=== PATIENT | male | born 2000 | race African-American/Black ===

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

== ENCOUNTER 2020-11-04 18:29 | Inpatient (IN) | payer MEDICAID, OTHER ==
[2020-11-04] MEDS: NALOXONE 0.4 MG/ML 1 ML VIAL IVP STA ×2 (18:32→18:38)
[2020-11-04] MEDS ORDERED: SODIUM CHLORIDE 0.9% 500 ML 500 ML IV STA (18:42)
[2020-11-04 18:43] LABS: Glucose,Whole Blood 160 mg/dL (75-99)
[2020-11-04 18:58] LABS: Basophils % (A) 0 %; Eosinophils % (A) 0 %; HGB 14.5 gm/dL (13.0-17.5); Lymphocytes # (A) 1.5 k/uL (1.0-4.8); Lymphocytes % (A) 21 %; MCH 31.7 pg (25.0-35.0); MCHC 33.8 g/dL (31.0-37.0); MCV 93.8 fL (80.0-100.0); Mean Platelet Volume 6.5; Monocytes # (A) 0.3 k/uL (0-1.0); Monocytes % (A) 4 %; Neutrophils # (A) 5.5 k/uL (1.3-7.7); Neutrophils % (A) 73 %; Platelet Count 257 k/uL (150-450); RBC 4.58 m/uL (4.30-5.90); RDW 12.8 % (11.5-15.5); WBC 7.5 k/uL (3.8-10.6)
[2020-11-04 19:05] LABS: ALT 12 U/L (4-49); AST 29 U/L (17-59); Acetaminophen <10.0 ug/mL; African American GFR (CKD) >90 (>60 ml/min/1.73 sqM); Albumin 4.4 g/dL (3.5-5.0); Alcohol <10 mg/dL; Alkaline Phosphatase 68 U/L (38-126); Anion Gap 8 mmol/L; Blood Urea Nitrogen 9 mg/dL (9-20); Calcium 9.7 mg/dL (8.4-10.2); Carbon Dioxide 25 mmol/L (22-30); Chloride 104 mmol/L (98-107); Glucose 128 mg/dL (74-99); Non-African American GFR(CKD) >90 (>60 ml/min/1.73 sqM); Potassium 3.7 mmol/L (3.5-5.1); Salicylate <1.0 mg/dL; Sodium 137 mmol/L (137-145); Total Bilirubin 0.8 mg/dL (0.2-1.3)
--- NOTE | 2020-11-04 19:08 | ED ---
General Adult HPI - General Chief complaint: Overdose Stated complaint: unresponsive Time Seen by Provider: 11/04/20 18:43 Source: RN/MD Mode of arrival: wheelchair Limitations: no limitations - History of Present Illness Initial comments: Dictation was produced using [employer] dictation software. please excuse any grammatical, word or spelling errors. Chief Complaint: 20-year-old male presents with overdose History of Present Illness: To 20-year-old male presents with mother. Mother reports that patient has been going through some disagreements with his girlfriend. Mother feels as though patient overdosed on his psychiatric med ication pills. Patient has history of suicidal behavior in the past. Patient takes fluoxetine 20 mg daily and olanzapine 5 mg daily. Senna clear how many pills he took and at exactly at what time. Patient unable to provide history of present illness at this time. Unable to obtain secondary to mental status PHYSICAL EXAM: General Impression: Lethargic, responsive to painful and verbal stimuli, somnolent HEENT: Normocephalic atraumatic, extra-ocular movements intact, pinpoint pupils, mucous membranes moist. Cardiovascular: Heart regular rate and rhythm Chest: no retractions, no tachypnea Abdomen: abdomen soft, non-tender, non-distended, no organomegaly Musculoskeletal: Pulses present and equal in all extremities, no peripheral edema Motor: no focal deficits noted Neurological: Moves all shows grossly Skin: Intact with no visualized rashes ED course: 20-year-old male presents after overdose. Respiratory rate is 10, rest of vital signs within acceptable limits. Patient does have pinpoint pupils. There is concern of opiate overdose. Patient given multiple rounds of Narcan with no significant improvement. Laboratory evaluation obtained. CBC, metabolic panel is unremarkable. No concern for toxic alcohol syndrome. Toxicology labs are negative. Patient is signed out to oncoming physician. EPS consulted for suicidal attempt. Patient chart reviewed at a later date shows that he was admitted to inpatient psychiatry. - Related Data Home Medications Medication Instructions Recorded Confirmed FLUoxetine HCL [PROzac] 20 mg PO HS 11/04/20 11/04/20 OLANZapine [ZyPREXA] 5 mg PO HS 11/04/20 11/04/20 Allergies Allergy/AdvReac Type Severity Reaction Status Date / Time paliperidone [From Invega] AdvReac LOCK JAW Verified 02/20/18 14:33 Review of Systems ROS Statement: Those systems with pertinent positive or pertinent negative responses have been documented in the HPI. ROS Other: All systems not noted in ROS Statement are negative. Past Medical History Past Medical History: No Reported History History of Any Multi-Drug Resistant Organisms: None Reported Past Surgical History: No Surgical Hx Reported Past Anesthesia/Blood Transfusion Reactions: No Reported Reaction Past Psychological History: ADD/ADHD, Bipolar, Schizophrenia Smoking Status: Never smoker Past Alcohol Use History: None Reported Past Drug Use History: Marijuana - Past Family History Family Family Medical History: No Reported History General Exam Limitations: no limitations Course Vital Signs 11/04/20 11/04/20 11/04/20 18:31 18:32 18:38 Temperature 97.6 F Pulse Rate 75 Respiratory 12 10 L 10 L Rate Blood Pressure 154/98 O2 Sat by Pulse 97 Oximetry 11/04/20 11/04/20 11/04/20 19:20 21:00 22:00 Temperature Pulse Rate 74 73 74 Respiratory 18 18 18 Rate Blood Pressure 135/54 116/79 100/41 O2 Sat by Pulse 96 98 95 Oximetry 11/04/20 11/05/20 11/05/20 23:00 00:00 01:11 Temperature Pulse Rate 67 62 62 Respiratory 18 18 18 Rate Blood Pressure 114/66 118/57 122/51 O2 Sat by Pulse 97 97 98 Oximetry Medical Decision Making - Lab Data Result diagrams: 11/04/20 18:46 11/04/20 18:46 Lab Results 11/04/20 11/04/20 11/04/20 Range/Units 18:37 18:46 18:46 WBC 7.5 (3.8-10.6) k/uL RBC 4.58 (4.30-5.90) m/uL Hgb 14.5 (13.0-17.5) gm/dL Hct 43.0 (39.0-53.0) % MCV 93.8 (80.0-100.0) fL MCH 31.7 (25.0-35.0) pg MCHC 33.8 (31.0-37.0) g/dL RDW 12.8 (11.5-15.5) % Plt Count 257 (150-450) k/uL MPV 6.5 Neutrophils % 73 % Lymphocytes % 21 % Monocytes % 4 % Eosinophils % 0 % Basophils % 0 % Neutrophils # 5.5 (1.3-7.7) k/uL Lymphocytes # 1.5 (1.0-4.8) k/uL Monocytes # 0.3 (0-1.0) k/uL Eosinophils # 0.0 (0-0.7) k/uL Basophils # 0.0 (0-0.2) k/uL Sodium 137 (137-145) mmol/L Potassium 3.7 (3.5-5.1) mmol/L Chloride 104 (98-107) mmol/L Carbon Dioxide 25 (22-30) mmol/L Anion Gap 8 mmol/L BUN 9 (9-20) mg/dL Creatinine 0.85 (0.66-1.25) mg/dL Est GFR (CKD-EPI)AfAm >90 (>60 ml/min/1.73 sqM) Est GFR (CKD-EPI)NonAf >90 (>60 ml/min/1.73 sqM) Glucose 128 H (74-99) mg/dL POC Glucose (mg/dL) 160 H (75-99) mg/dL POC Glu Machine Sewer ID Antonina Cha Osmolality 286 (280-301) mosm/kg Calcium 9.7 (8.4-10.2) mg/dL Total Bilirubin 0.8 (0.2-1.3) mg/dL AST 29 (17-59) U/L ALT 12 (4-49) U/L Alkaline Phosphatase 68 (38-126) U/L Total Protein 7.0 (6.3-8.2) g/dL Albumin 4.4 (3.5-5.0) g/dL Salicylates <1.0 mg/dL Acetaminophen <10.0 ug/mL Serum Alcohol <10 mg/dL Disposition Clinical Impression: Overdose, Attempted suicide Disposition: ADMITTED IP TO THIS HOSP Condition: Fair
[2020-11-05] MEDS ORDERED: MAG HYDROX/AL HYDROX/SIMETH 30 ML CUP PO PRN (07:06)
[2020-11-05] MEDS ORDERED: ACETAMINOPHEN TAB 325 MG TAB PO PRN (07:06)
[2020-11-05] MEDS ORDERED: MAGNESIUM HYDROXIDE 2,400 MG/10 ML CUP PO PRN (07:06)
[2020-11-05] MEDS ORDERED: haloperidoL 5 MG TAB PO PRN (07:12)
[2020-11-05] MEDS ORDERED: HALOPERIDOL LACTATE 5 MG/ML 1 ML VIAL IM PRN (07:12)
[2020-11-05] MEDS ORDERED: LORazepam 2 MG/ML INJ IM PRN (07:13)
[2020-11-05] MEDS ORDERED: LORazepam 1 MG TAB PO PRN (07:13)
--- NOTE | 2020-11-05 12:08 | P.HP ---
Psychiatric H&P - . H&P Date: 11/05/20 History & Physical: Allergies Allergy/AdvReac Type Severity Reaction Status Date / Time paliperidone [From Invega] AdvReac LOCK JAW Verified 02/20/18 14:33 Vital Signs Temp 98.7 F 11/05/20 07:40 Pulse 60 11/05/20 07:40 Resp 16 11/05/20 07:40 BP 137/67 11/05/20 07:40 Pulse Ox 99 11/05/20 07:38 Intake & Output 11/04/20 11/05/20 11/05/20 18:59 06:59 18:59 Weight 58.967 kg Laboratory Last Values WBC 7.5 k/uL (3.8-10.6) 11/04/20 18:46 RBC 4.58 m/uL (4.30-5.90) 11/04/20 18:46 Hgb 14.5 gm/dL (13.0-17.5) 11/04/20 18:46 Hct 43.0 % (39.0-53.0) 11/04/20 18:46 MCV 93.8 fL (80.0-100.0) 11/04/20 18:46 MCH 31.7 pg (25.0-35.0) 11/04/20 18:46 MCHC 33.8 g/dL (31.0-37.0) 11/04/20 18:46 RDW 12.8 % (11.5-15.5) 11/04/20 18:46 Plt Count 257 k/uL (150-450) 11/04/20 18:46 MPV 6.5 11/04/20 18:46 Neutrophils % 73 % 11/04/20 18:46 Lymphocytes % 21 % 11/04/20 18:46 Monocytes % 4 % 11/04/20 18:46 Eosinophils % 0 % 11/04/20 18:46 Basophils % 0 % 11/04/20 18:46 Neutrophils # 5.5 k/uL (1.3-7.7) 11/04/20 18:46 Lymphocytes # 1.5 k/uL (1.0-4.8) 11/04/20 18:46 Monocytes # 0.3 k/uL (0-1.0) 11/04/20 18:46 Eosinophils # 0.0 k/uL (0-0.7) 11/04/20 18:46 Basophils # 0.0 k/uL (0-0.2) 11/04/20 18:46 Sodium 137 mmol/L (137-145) 11/04/20 18:46 Potassium 3.7 mmol/L (3.5-5.1) 11/04/20 18:46 Chloride 104 mmol/L (98-107) 11/04/20 18:46 Carbon Dioxide 25 mmol/L (22-30) 11/04/20 18:46 Anion Gap 8 mmol/L 11/04/20 18:46 BUN 9 mg/dL (9-20) 11/04/20 18:46 Creatinine 0.85 mg/dL (0.66-1.25) 11/04/20 18:46 Est GFR (CKD-EPI)AfAm >90 (>60 ml/min/1.73 sqM) 11/04/20 18:46 Est GFR (CKD-EPI)NonAf >90 (>60 ml/min/1.73 sqM) 11/04/20 18:46 Glucose 128 mg/dL (74-99) H 11/04/20 18:46 POC Glucose (mg/dL) 160 mg/dL (75-99) H 11/04/20 18:37 POC Glu Coin Counter And Wrapper Antonina Pisano 11/04/20 18:37 Osmolality 286 mosm/kg (280-301) 11/04/20 18:46 Calcium 9.7 mg/dL (8.4-10.2) 11/04/20 18:46 Total Bilirubin 0.8 mg/dL (0.2-1.3) 11/04/20 18:46 AST 29 U/L (17-59) 11/04/20 18:46 ALT 12 U/L (4-49) 11/04/20 18:46 Alkaline Phosphatase 68 U/L (38-126) 11/04/20 18:46 Total Protein 7.0 g/dL (6.3-8.2) 11/04/20 18:46 Albumin 4.4 g/dL (3.5-5.0) 11/04/20 18:46 Salicylates <1.0 mg/dL 11/04/20 18:46 Acetaminophen <10.0 ug/mL 11/04/20 18:46 Serum Alcohol <10 mg/dL 11/04/20 18:46 11/05/20 12:08 IDENTIFYING DATA: Patient is a 20-year-old -[place] male who was brought to the hospital by his mother because of a suicide attempt by overdose. HPI: Patient presented to the hospital on 11/04/20, brought in by his mother after the patient reportedly overdosed on Prozac and Zyprexa. As per report by the patient's mother in the emergency department, the patient has been having disagreements with his girlfriend. The patient was petitioned and certified in the emergency department as the patient was uncooperative with the assessment by the EPS nurse but did admit to the overdose. The patient was noted to have a respiratory rate of 10 and some pinpoint pupils and therefore there was concern for possible opiate overdose and the patient was given Narcan with no significant improvement. Upon evaluation on the unit, the patient has been noted by staff to be easily agitated, and through his hat at the nursing station when informed that this hat could not be worn on the unit due to a ligature risk. The patient has been primarily isolative to himself in his room. When approached by this provider, the patient did admit that he did overdose with intention to take his life but refused to elaborate any further. He denies that this was a premeditated event but this occurred impulsively. When asked about his psychiatric treatment, the patient refuses to elaborate. In regards to symptoms, the patient states that he has been feeling "terrible." He provides one word replies and then asks this provider for his hat back. He then asks for discharge. Patient does not cooperate with the psychiatric interview and interview was terminated. PAST PSYCHIATRIC HISTORY: Patient is reportedly following with [facility] in the outpatient setting but has not been adherent with his medications or his appropriate appointments. His home medications include Prozac and Zyprexa. The patient was last admitted on this psychiatric unit on 01/15/2018 to 02/02/2018 for bizarre behavior including excessive energy, paranoia and psychosis. At that time the patient was discharged on Invega. The patient reportedly had a "lockjaw" reaction to invega. PMH: ALLERGIES: Paliperidone CHEMICAL DEPENDENCY HISTORY: As per chart review marijuana and tobacco FAMILY PSYCHIATRIC/SUBSTANCE USE HISTORY: Unable to obtain. SOCIAL HISTORY: Unable to obtain. MENTAL STATUS EXAM: General Appearance: Patient appears to be stated age is alert, is a very thin build. He has apiercing. Behavior: Patient is lying in bed, covering himself at the bed sheets and refuses to make eye contact with this provider. Speech: Patient's speech is nonspontaneous. Minimal. Low in volume. Mood/Affect: Mood is angry. Affect is irritable. Suicidality/Homicidality: Patient is currently not reporting any suicidal or homicidal ideation. Perceptions: Patient denies auditory or visual hallucinations. Though content/process: Unable to assess. Memory and concentration: Unable to assess. Judgment and insight: Very poor STRENGTHS/WEAKNESSES: Unable to determine patient's strengths. Weakness is that the patient has been nonadherent with treatment and has had a prior attempt at suicide. INTELLECT: Unable to assess IMPRESSIONS: Depressive disorder, unspecified As per chart review, possible bipolar disorder with psychotic features PLAN: -Patient is admitted under involuntary status to MHU for stabilization of psychiatric symptoms and safety. A second certification was completed and along with petition will be filed for court. -Medications : At this time, we will hold on starting medications until the patient is able to appropriately cooperate due to concern for adverse reaction with prior medications including "lockjaw" from invega. Patient will likely require a Long acting injectible. Consider Haldol Decanoate in the future. -Ativan and Haldol PRN for agitation/aggression -Internal Medicine consult to perform medical evaluation and physical. -NRT - nicotine patch -SW on board for discharge planning. Encourage patient to participate in groups to work on coping skills.
--- NOTE | 2020-11-06 05:16 | P.CONS ---
History of Present Illness - Reason for Consult Consult date: 11/06/20 Medical evaluation Requesting physician: Bj Lynch - Chief Complaint Acute psychosis - History of Present Illness 20-year-old male presenting with aggressive behavior suspected to have acute psychosis admitted to the mental health unit Patient did not show interest in the interview, he denies any medical concerns or physical complaints at this time he denies any fevers chills coughing shortness of breath chest pain nausea vomiting or abdominal pain denies any changes in his bowel or urinary habits Review of Systems Pertinent positives as noted in HPI. All other systems were reviewed and are negative Past Medical History Past Medical History: No Reported History History of Any Multi-Drug Resistant Organisms: None Reported Past Surgical History: No Surgical Hx Reported Past Anesthesia/Blood Transfusion Reactions: No Reported Reaction Past Psychological History: ADD/ADHD, Bipolar, Schizophrenia Smoking Status: Never smoker Past Alcohol Use History: None Reported Past Drug Use History: Marijuana - Past Family History Family Family Medical History: No Reported History Medications and Allergies Home Medications Medication Instructions Recorded Confirmed Type FLUoxetine HCL [PROzac] 20 mg PO HS 11/04/20 11/04/20 History OLANZapine [ZyPREXA] 5 mg PO HS 11/04/20 11/04/20 History Allergies Allergy/AdvReac Type Severity Reaction Status Date / Time paliperidone [From Invega] AdvReac LOCK JAW Verified 02/20/18 14:33 Physical Exam Vitals: Vital Signs Temp Pulse Pulse Resp BP BP Pulse Ox 11/05/20 07:40 98.7 F 60 16 137/67 11/05/20 07:38 98.7 F 66 18 110/67 99 Patient declined physical exam Results CBC & Chem 7: 11/04/20 18:46 11/04/20 18:46 Assessment and Plan Assessment: Acute psychosis Management per psych Elevated blood sugar readings Check A1c level Thank you for allowing us to participate in the care of this patient. We will follow peripherally. Do not hesitate to contact us with questions. Someone can be reached from the [facility] hospitalist group at all hours of the day at [phone].
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
[2020-11-06] MEDS: ARIPiprazole 5 MG TAB PO SCH (20:32)
[2020-11-07] MEDS: FLUoxetine HCL 20 MG CAP PO SCH (07:53)
[2020-11-07] MEDS: ARIPiprazole 5 MG TAB PO SCH (20:26)
--- NOTE | 2020-11-08 01:31 | P.PN ---
Progress Note - Text Progress Note Date: 11/07/20 Subjective: Patient was seen today as a cross coverage for Dr. Orona. The patient was evaluated, chart reviewed, case discussed with the treatment team. Patient reports good sleep last night, and appetite was reported as " fair". Patient has been going to selected groups and other unit activities. The patient is compliant with his medications and denies any adverse reactions. Patient reports is generally feeling stable emotionally and he denies depression or anxiety symptoms. He denies any hallucinations, paranoid ideation, or delusions. No manic symptoms reported or noticed. Objective: Vitals has been reviewed. Mental status examination; Appearance: The patient appears stated age, adequately groomed and dressed, no specific features. Gait/posture: Normal gait, Normal arm swinging: No abnormal movements. Attitude and behavior: engaged, cooperative, eye contact. Motor activity: Normal psychomotor activity Speech: Normal rate, tone. Mood: "fine" Affect: Constricted Thought form: goal-directed, linear, coherent. Thought content: Non-delusional, denies suicidal thoughts, denies homicidal thoughts, denies intentions or plans. Perception: Denies any auditory or visual hallucinations Attention: No impairment. Orientation: Patient patient was fully oriented to time place person and situation. Insight: Patient has fair insight about his psychiatric disorder. Judgment: Patient has fair judgment about his psychiatric treatment. Assessment: Bipolar disorder, type I, current episode depressed Rule out PTSD Plan: Continue inpatient level of care due to need for further monitoring and stabilization Precautions: Continue 15 minutes check for safety. Consider medical consultation if any acute medical issues arise. Provide the patient individual, group therapy, substance use disorder counseling to give better insight and learn coping skills. Medications: Continue Abilify for mood stabilization, and the Prozac for depression, anxiety, and PTSD symptoms. Continue as needed medications for psychiatric emergencies including psychosis, agitation and anxiety. Continue non-psychiatric medications for medical conditions as recommended by the medical team. Discharge patient to OUTPATIENT services upon a stabilization
[2020-11-08] MEDS: FLUoxetine HCL 20 MG CAP PO SCH (08:59)
[2020-11-08] MEDS: ARIPiprazole 5 MG TAB PO SCH (20:27)
--- NOTE | 2020-11-08 23:42 | P.PN ---
Progress Note - Text Progress Note Date: 11/08/20 Subjective: Patient was seen today as a cross coverage for Dr. Orona. The patient was evaluated, chart reviewed, case discussed with the treatment team. Patient presents cooperative and pleasant. He reports feeling stable emotionally and he denies any symptoms of depression, anxiety, or mood swings. He denies any hallucinations, paranoid ideation, or delusions. No manic symptoms reported or noticed. Denies any suicidal or homicidal ideation. Reports continued to have fair sleep and appetite, takes his psych medications was no side effects, and attends some groups and other unit activities. Objective: Vitals has been reviewed. Mental status examination; Appearance: The patient appears stated age, adequately groomed and dressed, no specific features. Gait/posture: Normal gait, Normal arm swinging: No abnormal movements. Attitude and behavior: engaged, cooperative, eye contact. Motor activity: Normal psychomotor activity Speech: Normal rate, tone. Mood: "fine" Affect: Constricted Thought form: goal-directed, linear, coherent. Thought content: Non-delusional, denies suicidal thoughts, denies homicidal thoughts, denies intentions or plans. Perception: Denies any auditory or visual hallucinations Attention: No impairment. Orientation: Patient patient was fully oriented to time place person and situation. Insight: Patient has fair insight about his psychiatric disorder. Judgment: Patient has fair judgment about his psychiatric treatment. Assessment: Bipolar disorder, type I, current episode depressed Rule out PTSD Plan: Continue inpatient level of care due to need for further monitoring and stabilization Precautions: Continue 15 minutes check for safety. Consider medical consultation if any acute medical issues arise. Provide the patient individual, group therapy, substance use disorder counseling to give better insight and learn coping skills. Medications: Continue Abilify for mood stabilization, and the Prozac for depression, anxiety, and PTSD symptoms. Continue as needed medications for psychiatric emergencies including psychosis, agitation and anxiety. Continue non-psychiatric medications for medical conditions as recommended by the medical team. Discharge patient to OUTPATIENT services upon a stabilization
[2020-11-09 07:31] VITALS: BP 127/81; PULSE 79; RESP 14; TEMP 98.3
[2020-11-09] MEDS: FLUoxetine HCL 20 MG CAP PO SCH (09:17)
--- NOTE | 2020-11-09 11:54 | P.PN ---
Progress Note - Text Progress Note Date: 11/09/20 Interval History: Patient was seen wandering the hallways and was directable and agreeable to speak with fiction and nonfiction writer prose in the office. Patient reports that he is doing well. He is currently not reporting any suicidal or homicidal ideation, intention, and/or plan. The weekend went well and he was able to sleep appropriately, eat well, and attend groups. The patient has been introduced medications and is not reporting any significant side effects at this time. He is not reporting any auditory or visual hallucinations. He is denying any paranoia or other delusions. He is agreeable to increasing his Abilify with the plan to transition him to Abilify maintena due to his history of nonadherence with treatment. Mental Status Exam: General Appearance: Patient appears to be stated age is alert, directable, and cooperative. The patient is wearing a Chavies skullcap, and a mask. Behavior: Patient is calmly seated without any agitated behavior. Psychomotor activity appears normal. Eye contact is appropriate. Speech: Patient's speech is fluent and nonpressured. Spontaneous, with normal rate, tone, volume. Mood/Affect: Mood is improving mildly, affect is congruent and constricted. Suicidality/Homicidality: Patient denies having any suicidal or homicidal ideation intent or plan. Perceptions: Patient denies any visual hallucinations and denies any auditory hallucinations Though content/process: There is no evidence of any delusional thought content and thought process is linear and goal-directed. Memory and concentration: AOX3, grossly intact for the purposes of this session Judgment and insight: Improving mildly Vital Signs Temp 98.3 F 11/09/20 07:31 Pulse 79 11/09/20 07:31 Resp 14 11/09/20 07:31 BP 127/81 11/09/20 07:31 Pulse Ox 99 11/08/20 09:06 Intake & Output 11/08/20 11/09/20 11/09/20 18:59 06:59 18:59 Weight 53.3 kg Assessment Bipolar disorder, type I, current episode depressed PTSD Plan: -Patient continues to meet criteria for inpatient psychiatric admission for symptom stabilization and safety. Patient deferred mental health court. -Medications: Increase Abilify to 10 mg by mouth at bedtime with plans to transition the patient to Abilify maintena (likely 300 mg IM), on Monday/Monday Increase Prozac to 30 mg by mouth daily for PTSD. -When necessary Ativan and Haldol for agitation/aggression. -SW on board for discharge planning. Encouraged the patient to participate in milieu.
[2020-11-09] MEDS ORDERED: ARIPiprazole 10 MG TAB PO SCH (21:00)
[2020-11-10] MEDS: FLUoxetine HCL 10 MG CAP PO SCH (08:19)
[2020-11-10] MEDS ORDERED: ARIPiprazole IM 400 MG VIAL (NO COST) PHARMACY STOCK IM ONE (11:00)
[2020-11-10 13:01] VITALS: BMI 18.3
--- NOTE | 2020-11-10 13:15 | P.PN ---
Progress Note - Text Progress Note Date: 11/10/20 Interval History: Patient was seen resting in bed and was agreeable to speak with editorial writer in his room. The patient is currently not reporting any suicidal or homicidal ideation, intent, and/or plan. He is not reporting auditory or visualizations. He is denying any paranoia and delusions. The patient has been tolerating his medications well and is agreeable to taking the Abilify maintena today due to his history of nonadherence with treatment. He is currently reporting no significant issues regarding sleep or appetite. The patient is looking for to discharge tomorrow. Mental Status Exam: General Appearance: Patient appears to be stated age is alert, directable, and cooperative. The patient is wearing a Erickson skullcap, and a mask. Behavior: Patient is calmly lying down in bed without any agitated behavior. Psychomotor activity appears normal. Eye contact is appropriate. Speech: Patient's speech is fluent and nonpressured. Spontaneous, with normal rate, tone, volume. Mood/Affect: Mood is feeling really good, affect is congruent with normal range of affect. Suicidality/Homicidality: Patient denies having any suicidal or homicidal ideation intent or plan. Perceptions: Patient denies any visual hallucinations and denies any auditory hallucinations Though content/process: There is no evidence of any delusional thought content and thought process is linear and goal-directed. Memory and concentration: AOX3, grossly intact for the purposes of this session Judgment and insight: Improving mildly Vital Signs Temp 98.3 F 11/09/20 07:31 Pulse 79 11/09/20 07:31 Resp 14 11/09/20 07:31 BP 127/81 11/09/20 07:31 Pulse Ox 99 11/08/20 09:06 Intake & Output 11/09/20 11/10/20 11/10/20 18:59 06:59 18:59 Weight 53.3 kg Assessment Bipolar disorder, type I, current episode depressed PTSD Plan: -Patient continues to meet criteria for inpatient psychiatric admission for symptom stabilization and safety. Patient deferred mental health court. -Medications: Abilify maintena 300 mg IM was administered on 11/10/2020. Next injection due on 12/08/2020. Increase Abilify to 15 mg by mouth at bedtime and will continue this medication for 2 weeks. Continue Prozac 30 mg by mouth daily for PTSD. -When necessary Ativan and Haldol for agitation/aggression. -SW on board for discharge planning. Encouraged the patient to participate in milieu.
[2020-11-10] MEDS ORDERED: ARIPiprazole 15 MG TAB PO SCH (21:00)
[2020-11-11] MEDS: FLUoxetine HCL 10 MG CAP PO SCH (08:20)
--- NOTE | 2020-11-11 11:52 | P.DS ---
Providers Date of admission: 11/05/20 06:58 Expected date of discharge: 11/11/20 Attending physician: Alexandro Orona MD Consults: 11/05/20 07:06 Consult Physician Routine Consulting Provider: Heidi Sloan Consult Reason/Comments: H&P Do you want consulting provider notified?: Yes Primary care physician: Stated None - Discharge Diagnosis(es) (1) Bipolar 1 disorder, manic, moderate Current Visit: Yes Status: Acute Priority: High (2) PTSD (post-traumatic stress disorder) Current Visit: Yes Status: Chronic Priority: Medium Hospital Course: Admission HPI: Patient is a 20-year-old -[place] male who was brought to the hospital by his mother because of a suicide attempt by overdose. Patient presented to the hospital on 11/04/20, brought in by his mother after the patient reportedly overdosed on Prozac and Zyprexa. As per report by the patient's mother in the emergency department, the patient has been having disagreements with his girlfriend. The patient was petitioned and certified in the emergency department as the patient was uncooperative with the assessment by the EPS nurse but did admit to the overdose. The patient was noted to have a respiratory rate of 10 and some pinpoint pupils and therefore there was concern for possible opiate overdose and the patient was given Narcan with no significant improvement. Upon evaluation on the unit, the patient has been noted by staff to be easily agitated, and through his hat at the nursing station when informed that this hat could not be worn on the unit due to a ligature risk. The patient has been primarily isolative to himself in his room. When approached by this provider, the patient did admit that he did overdose with intention to take his life but refused to elaborate any further. He denies that this was a premeditated event but this occurred impulsively. When asked about his psychiatric treatment, the patient refuses to elaborate. In regards to symptoms, the patient states that he has been feeling "terrible." He provides one word replies and then asks this provider for his hat back. He then asks for discharge. Patient does not cooperate with the psychiatric interview and interview was terminated. PAST PSYCHIATRIC HISTORY: Patient is reportedly following with [facility] in the outpatient setting but has not been adherent with his medications or his appropriate appointments. His home medications include Prozac and Zyprexa. The patient was last admitted on this psychiatric unit on 01/15/2018 to 02/02/2018 for bizarre behavior including excessive energy, paranoia and psychosis. At that time the patient was discharged on Invega. The patient reportedly had a "lockjaw" reaction to invega. Hospital course: Upon admission to the unit patient was initially uncooperative, irritable, and displaying no eye contact with this provider. Furthermore, the patient did endorse significant suicidal ideation and did attempt an overdose, which she adm itted to. The patient was started on medications, but it was uncertain whether he was going to be compliant or not. The patient did end up taking the medications as prescribed. The patient was started on Abilify and Prozac with plans to transition the patient to Abilify maintena as the patient has a history of nonadherence to treatment. The patient was also evaluated by the medical team for history and physical examination. Over the course of the hospitalization, the patient became more compliant and more productive with this provider. He engaged in both individual and milieu therapies and was adherent with his medications and tolerated them well. The patient's Abilify was gradually titrated to final dose of 15 mg daily, and the decision was made to administer Abilify maintena 300 mg IM instead of 400 mg as the patient is of the smaller build and appears to have significant improvement on the lower dose of Abilify. The patient was agreeable to this plan. On the day of discharge, the patient is not reporting any suicidal or homicidal ideation, intention, and/or plan. He is not reporting any auditory or visual hallucinations. He is denying any paranoia or delusions. The patient is future oriented and expresses a desire to go back to work. The patient is not reporting any issues regarding sleep or appetite. He has been tolerating his medications well. The patient was counseled at length on the importance of medication adherence and following up with his outpatient appointments. Furthermore, the patient was counseled on avoiding all substances including alcohol and marijuana as they may cause worsening of mood. Prior to discharge, family meeting. orchid worker to answer any questions and ensure safety. Mental status exam: General Appearance: Patient appears to be stated age is alert, pleasant, and cooperative. Patient is in no acute distress and has fair hygiene and grooming. Patient continues to wear a Erickson skullcap and a mask. Behavior: Patient is calmly seated without any agitated behavior. Eye contact is appropriate. Psychomotor activity is normal. Speech: Patient's speech is fluent and nonpressured. Spontaneous, minimal but with normal tone and volume Mood/Affect: Patient reports their mood is "been feeling good", affect is congruent and euthymic. Suicidality/Homicidality: Patient denies having any suicidal or homicidal ideation intent or plan. Perceptions: Patient denies any auditory or visual hallucinations. Though content/process: There is no evidence of any delusional thought content and thought process is linear and goal-directed. Patient is future oriented. Memory and concentration: AOX3, grossly intact for the purposes of this session. Can spell "WORLD" backwards correctly. Judgment and insight: Improved with guarded prognosis Vital Signs Temp 98.3 F 11/09/20 07:31 Pulse 79 11/09/20 07:31 Resp 14 11/09/20 07:31 BP 127/81 11/09/20 07:31 Pulse Ox 99 11/08/20 09:06 Intake & Output 11/10/20 11/11/20 11/11/20 18:59 06:59 18:59 Weight 53.3 kg Impression: Bipolar disorder, type I, depressed episode. PTSD Plan: -Continue with discharge today as patient has improved and stabilized psychiatrically and is not currently an imminent threat to himself] and/or others. Patient will remain at chronically elevated risk for harm to self and/or others due to his history of prior attempts at suicide in nonadherence to treatment. -Continue medications: Abilify Maintena 300 mg IM was administered on 11/10/2020. Next dose due on 12/08/2020. Continue oral abilify 15 mg daily for 13 days Continue Prozac 30 mg daily for depression/anxiety/PTSD -Patient was counseled on the need for medication compliance and appropriate follow-up at mental health and also primary care for medical issues. Patient verbalized understanding and agreed. -Social work to arrange for and conduct family meeting to ensure safety upon discharge and answer any questions/concerns. Social work also to arrange for patients follow up appointments with [facility] for psychiatric care along with follow up with primary care provider. -Patient counseled on abstaining from recreational drugs and marijuana and alcohol. Was informed/educated on the adverse effects on their physical and mental health. Patient verbally agreed and understood. -Patient was instructed to return to the hospital or seek immediate medical care if their psychiatric or medical symptoms do worsen or reoccur. -Psychoeducation and supportive therapy provided to patient. Risks and benefits of pharmacological treatment versus the risks and benefits of nontreatment weight and discussed. Informed consent discussion held. Common side effects of psychotropics discussed such as, but not limited to headache, GI disturbance, sexual dysfunction, movement disorders, sedation, and orthostatic hypotension. Life threatening and blackbox warnings of prescribed medications also discussed. Potential risks of operating a vehicle or heavy machinery discussed with patient at length. Advised on importance of compliance and a reliable and responsible manner. Patient advised to review FDA consumer labeling of all medications prior to taking. Patient verbalized understanding of potential risks, and agrees with current treatment plan. Patient advised to medically contact physician/emergency personnel if any acute changes in condition occur. Allergies Allergy/AdvReac Type Severity Reaction Status Date / Time paliperidone [From Invega] AdvReac LOCK JAW Verified 02/20/18 14:33 Laboratory Results WBC 7.5 k/uL (3.8-10.6) 11/04/20 18:46 RBC 4.58 m/uL (4.30-5.90) 11/04/20 18:46 Hgb 14.5 gm/dL (13.0-17.5) 11/04/20 18:46 Hct 43.0 % (39.0-53.0) 11/04/20 18:46 MCV 93.8 fL (80.0-100.0) 11/04/20 18:46 MCH 31.7 pg (25.0-35.0) 11/04/20 18:46 MCHC 33.8 g/dL (31.0-37.0) 11/04/20 18:46 RDW 12.8 % (11.5-15.5) 11/04/20 18:46 Plt Count 257 k/uL (150-450) 11/04/20 18:46 MPV 6.5 11/04/20 18:46 Neutrophils % 73 % 11/04/20 18:46 Lymphocytes % 21 % 11/04/20 18:46 Monocytes % 4 % 11/04/20 18:46 Eosinophils % 0 % 11/04/20 18:46 Basophils % 0 % 11/04/20 18:46 Neutrophils # 5.5 k/uL (1.3-7.7) 11/04/20 18:46 Lymphocytes # 1.5 k/uL (1.0-4.8) 11/04/20 18:46 Monocytes # 0.3 k/uL (0-1.0) 11/04/20 18:46 Eosinophils # 0.0 k/uL (0-0.7) 11/04/20 18:46 Basophils # 0.0 k/uL (0-0.2) 11/04/20 18:46 Sodium 137 mmol/L (137-145) 11/04/20 18:46 Potassium 3.7 mmol/L (3.5-5.1) 11/04/20 18:46 Chloride 104 mmol/L (98-107) 11/04/20 18:46 Carbon Dioxide 25 mmol/L (22-30) 11/04/20 18:46 Anion Gap 8 mmol/L 11/04/20 18:46 BUN 9 mg/dL (9-20) 11/04/20 18:46 Creatinine 0.85 mg/dL (0.66-1.25) 11/04/20 18:46 Est GFR (CKD-EPI)AfAm >90 (>60 ml/min/1.73 sqM) 11/04/20 18:46 Est GFR (CKD-EPI)NonAf >90 (>60 ml/min/1.73 sqM) 11/04/20 18:46 Glucose 128 mg/dL (74-99) H 11/04/20 18:46 POC Glucose (mg/dL) 160 mg/dL (75-99) H 11/04/20 18:37 POC Glu Optical Scientist MILAN Antonina Cha 11/04/20 18:37 Osmolality 286 mosm/kg (280-301) 11/04/20 18:46 Calcium 9.7 mg/dL (8.4-10.2) 11/04/20 18:46 Total Bilirubin 0.8 mg/dL (0.2-1.3) 11/04/20 18:46 AST 29 U/L (17-59) 11/04/20 18:46 ALT 12 U/L (4-49) 11/04/20 18:46 Alkaline Phosphatase 68 U/L (38-126) 11/04/20 18:46 Total Protein 7.0 g/dL (6.3-8.2) 11/04/20 18:46 Albumin 4.4 g/dL (3.5-5.0) 11/04/20 18:46 Salicylates <1.0 mg/dL 11/04/20 18:46 Acetaminophen <10.0 ug/mL 11/04/20 18:46 Serum Alcohol <10 mg/dL 11/04/20 18:46 Patient Condition at Discharge: Stable Plan - Discharge Summary Discharge Rx Participant: No New Discharge Prescriptions: New ARIPiprazole [Abilify Maintena] 300 mg PO QMONTHLY #1 each FLUoxetine HCL [PROzac] 30 mg PO DAILY 30 Days cap ARIPiprazole [Abilify] 15 mg PO HS 13 Days tab Discontinued OLANZapine [ZyPREXA] 5 mg PO HS FLUoxetine HCL [PROzac] 20 mg PO HS Discharge Medication List ARIPiprazole [Abilify Maintena] 300 mg PO QMONTHLY #1 each 11/11/20 [Rx] ARIPiprazole [Abilify] 15 mg PO HS 13 Days tab 11/11/20 [Rx] FLUoxetine HCL [PROzac] 30 mg PO DAILY 30 Days cap 11/11/20 [Rx] Follow up Appointment(s)/Referral(s): [facility] [Outside] - 11/13/20 10:00 am (Apt with Harjeet Chase 11/13/2020 at 10:00 AM at [facility] Apt with Marguerite Viramontes 11/12/2020 at 12:30 PM at [facility]) [facility] [NON-STAFF] - 1 Week Patient Instructions/Handouts: Depression (DC) Activity/Diet/Wound Care/Special Instructions: Activity and diet as tolerated. Avoid the use of street drugs and alcohol. Take all medications as prescribed. When you are in need of refills on your medications please contact your medical provider and/or outpatient psychiatrist to have this done. Please go to scheduled outpatient appointment for aftercare treatment. If symptoms return or become worse, call the crisis line at and/or go to the nearest emergency room for evaluation. Discharge Disposition: HOME SELF-CARE
== END 2020-11-11 12:20 | disposition home or self-care (01) | DRG 918 ==
LOC: EC 18:29 → 3MHU 11-05 06:58
PROVIDERS: ADMIT Psychiatry & Neurology Psychiatry; ATTEND Psychiatry & Neurology Psychiatry
DX: T43.222A Poisoning by selective serotonin reuptake inhibitors, intentional self-harm, initial encounter (principal); F31.62 Bipolar disorder, current episode mixed, moderate; F90.9 Attention-deficit hyperactivity disorder, unspecified type; T43.592A Poisoning by other antipsychotics and neuroleptics, intentional self-harm, initial encounter; F43.10 Post-traumatic stress disorder, unspecified; Z88.8 Allergy status to other drugs, medicaments and biological substances; Z79.899 Other long term (current) drug therapy
CPT/HCPCS: 36415; 80053; 80143; 80179; 80320; 83930; 85025; 93005; 96361; 96374; 99285

== ENCOUNTER 2024-07-26 19:45 | Emergency (ER) | payer MEDICARE, OTHER ==
[2024-07-26 19:55] VITALS: RESP 19
[2024-07-26] MEDS: KETOROLAC 15 MG/ML 1 ML VIAL IVP STA (20:56)
[2024-07-26 21:02] LABS: Basophils # (A) 0.01 10*3/uL (0.00-0.10); Basophils % (A) 0.1 %; Eosinophils # (A) 0.01 10*3/uL (0.04-0.35); Eosinophils % (A) 0.1 %; HCT 43.6 % (39.6-50.0); HGB 15.5 g/dL (13.0-17.0); Lymphocytes # (A) 1.05 10*3/uL (0.90-5.00); Lymphocytes % (A) 13.7 %; MCH 32.4 pg (27.0-32.0); MCHC 35.6 g/dL (32.0-37.0); Mean Platelet Volume 8.6 fL (9.5-12.2); Monocytes # (A) 0.49 10*3/uL (0.20-1.00); Monocytes % (A) 6.4 %; Neutrophils # (A) 6.11 10*3/uL (1.80-7.70); Neutrophils % (A) 79.4 %; Platelet Count 307 10*3/uL (140-440); RBC 4.79 10*6/uL (4.40-5.60); RDW 11.9 % (11.5-14.5); WBC 7.69 10*3/uL (4.50-10.00)
[2024-07-26 21:11] LABS: ALT 12 U/L (4-49); AST 20 U/L (17-59); African American GFR (CKD) >90 (>60 ml/min/1.73 sqM); Albumin 4.6 g/dL (3.5-5.0); Alkaline Phosphatase 84 U/L (38-126); Anion Gap 9 mmol/L; Blood Urea Nitrogen 14 mg/dL (9-20); Calcium 9.8 mg/dL (8.4-10.2); Carbon Dioxide 24 mmol/L (22-30); Chloride 105 mmol/L (98-107); Glucose 119 mg/dL (74-99); Non-African American GFR(CKD) >90 (>60 ml/min/1.73 sqM); Potassium 3.8 mmol/L (3.5-5.1); Sodium 138 mmol/L (137-145); Total Bilirubin 1.7 mg/dL (0.2-1.3); Total Protein 7.3 g/dL (6.3-8.2)
--- NOTE | 2024-07-26 21:29 | CT ---
EXAMINATION TYPE: CT facial bones w con DATE OF EXAM: 07/26/2024 COMPARISON: CLINICAL INDICATION: Male, 24 years old with history of jaw swelling, difficulty breathing; [facility], [place] om right tooth visibly swollen right cheek. Patient reports pain 7/10 and that he has been dealing wi th a bad tooth/abscess situation for about a year. TECHNIQUE: CT scan of the facial bones is performed with IV Contrast, patient injected with 100 ml mL of Isovue 300. CT DLP: 801.[address] CTDI: mGy Automated exposure control for dose reduction was used. TECHNIQUE: CT scan of the facial bones and soft tissues is performed without contrast, axial images a re obtained, coronal reformatted images are also reviewed. FINDINGS: There is dental caries noted to involve the right lower first molar and second molar with adjacent nava bperiosteal abscess measuring 1.3 cm x 6 mm seen best on image 48 of 113. There is additional dental caries noted to involve the left lower first and second molars. No definite periosteal abscess seen a t this time in this region. Dental caries noted to involve the right upper third molar. There is evid ence of right facial swelling. Mild fullness of the tonsillar pillars without abscess. Small mucous r etention cyst right maxillary sinus. IMPRESSION: 1.There is dental caries noted to involve the right lower first molar and second molar with adjacent subperiosteal abscess measuring 1.3 cm x 6 mm seen best on image 48 of 113. Right facial swelling as discussed above. [facility], , 07/26/2024 9:27 PM
--- NOTE | 2024-07-26 21:50 | ED ---
ENT HPI - General Chief complaint: Dental/Oral Stated complaint: Abscess in mouth Time Seen by Provider: 07/26/24 19:56 Source: EMS Mode of arrival: EMS Limitations: no limitations - History of Present Illness Initial comments: 24-year-old male presenting with chief complaint of dental abscess. Patient has a friend who is helping him provide the history as his mouth is in pain at this time. States that he has had an on and off infections for about a year now. He does not have a dentist. He is having difficulty opening his mouth. No fever. He is still able to eat and drink without difficulty. States that he sometimes has some difficulty breathing. No drooling. No voice changes. - Related Data Previous Rx's Medication Instructions Recorded ARIPiprazole [Abilify Maintena] 300 mg PO QMONTHLY #1 each 11/11/20 ARIPiprazole [Abilify] 15 mg PO HS 13 Days tab 11/11/20 FLUoxetine HCL [PROzac] 30 mg PO DAILY 30 Days cap 11/11/20 Amoxic-Pot Clav 875-125Mg 1 tab PO Q12HR 7 Days #14 tab 07/26/24 [Augmentin 875-125] Allergies Allergy/AdvReac Type Severity Reaction Status Date / Time paliperidone [From Invega] AdvReac LOCK JAW Verified 07/26/24 19:56 Review of Systems ROS Statement: Those systems with pertinent positive or pertinent negative responses have been documented in the HPI. ROS Other: All systems not noted in ROS Statement are negative. Past Medical History Past Medical History: No Reported History History of Any Multi-Drug Resistant Organisms: None Reported Past Surgical History: No Surgical Hx Reported Past Anesthesia/Blood Transfusion Reactions: No Reported Reaction Past Psychological History: ADD/ADHD, Bipolar, Schizophrenia Smoking Status: Never smoker Past Alcohol Use History: None Reported Past Drug Use History: Marijuana - Past Family History Family Family Medical History: No Reported History General Exam Limitations: no limitations General appearance: alert, in no apparent distress Head exam: Present: atraumatic, normocephalic, normal inspection Eye exam: Present: normal appearance, EOMI Expanded Teeth exam: Present: other (Right lower side swelling, evidence of dental abscess) Neck exam: Present: normal inspection. Absent: meningismus Respiratory exam: Absent: respiratory distress, stridor Cardiovascular Exam: Present: regular rate Neurological exam: Present: alert, oriented X3 Psychiatric exam: Present: normal affect, normal mood Skin exam: Present: warm, dry, normal color Course Vital Signs 07/26/24 19:47 Temperature 98.9 F Pulse Rate 96 Respiratory 19 Rate Blood Pressure 144/100 O2 Sat by Pulse 99 Oximetry Medical Decision Making - Medical Decision Making Was pt. sent in by a medical professional or institution (, PA, SEXUAL ASSAULT COUNSELOR, urgent care, hospital, or long-term...) When possible be specific @ -No Did you speak to anyone other than the patient for history (EMS, parent, family, police, friend...)? What history was obtained from this source @ -No Did you review nursing and triage notes (agree or disagree)? Why? @ -I reviewed and agree with nursing and triage notes Were old charts reviewed (outside hosp., previous admission, EMS record, old EKG, old radiological studies, urgent care reports/EKG's, long-term records)? Report findings @ -No old charts were reviewed Differential Diagnosis (chest pain, altered mental status, abdominal pain women, abdominal pain men, vaginal bleeding, weakness, fever, dyspnea, syncope, headache, dizziness, GI bleed, back pain, seizure, CVA, palpatations, mental health, musculoskeletal)? @ -Differential includes dental abscess, toothache, Paco's angina, not an all-inclusive list EKG interpreted by me (3pts min.). @ -As above X-rays interpreted by me (1pt min.). @ -None done CT interpreted by me (1pt min.). @ -CT shows dental caries noted to involve the right lower first molar and second molar with adjacent subperiosteal abscess measuring 1.3 cm x 6 mm seen best on image 48 and 113. Right facial swelling U/S interpreted by me (1pt. min.). @ -None done What testing was considered but not performed or refused? (CT, X-rays, U/S, labs)? Why? @ -None What meds were considered but not given or refused? Why? @ -None Did you discuss the management of the patient with other professionals (professionals i.e. , PA, SEXUAL ASSAULT COUNSELOR, lab, RT, psych nurse, healthcare social worker, hotel engineer, teacher, special service officer, case hardener)? Give summary @ -No Was smoking cessation discussed for >3mins.? @ -No Was critical care preformed (if so, how long)? @ -No Were there social determinants of health that impacted care today? How? (Homelessness, low income, unemployed, alcoholism, drug addiction, transportation, low edu. Level, literacy, decrease access to med. care, long term, rehab)? @ -No Was there de-escalation of care discussed even if they declined (Discuss DNR or withdrawal of care, Hospice)? DNR status @ -No What co-morbidities impacted this encounter? (DM, HTN, Smoking, COPD, CAD, Cancer, CVA, ARF, Chemo, Hep., AIDS, mental health diagnosis, sleep apnea, morbid obesity)? @ -None Was patient admitted / discharged? Hospital course, mention meds given and route, prescriptions, significant lab abnormalities, going to OR and other pertinent info. @ -24-year-old male presenting with chief complaint of dental abscess on the right lower side. He does not have a dentist at this time. On exam there is right lower jaw swelling. Patient does have difficulty with opening his mouth. He has no difficulty with eating or drinking. He states that sometimes he has some difficulty breathing. CT is obtained which shows evidence of dental abscess, no other complicating process. Patient will be started on Augmentin. He is instructed to follow-up with a dentist. Follow-up with PCP. Report back to ER with any new or worsening symptoms. Discussed return parameters and answered all questions. Patient conveyed verbal understanding and agreed to the plan. I discussed this case in detail with my attending Dr. Kuo Undiagnosed new problem with uncertain prognosis? @ -No Drug Therapy requiring intensive monitoring for toxicity (Heparin, Nitro, Insulin, Cardizem)? @ -No Were any procedures done? @ -No Diagnosis/symptom? @ -Dental abscess Acute, or Chronic, or Acute on Chronic? @ -Acute Uncomplicated (without systemic symptoms) or Complicated (systemic symptoms)? @ -Uncomplicated Side effects of treatment? @ -No Exacerbation, Progression, or Severe Exacerbation? @ -No Poses a threat to life or bodily function? How? (Chest pain, [place], [place], pneumonia, PE, COPD, DKA, ARF, appy, cholecystitis, CVA, Diverticulitis, Homicidal, Suicidal, threat to staff... and all critical care pts) @ -Potential with any infection, low likelihood at this time - Lab Data Result diagrams: 07/26/24 20:51 07/26/24 20:51 Lab Results 07/26/24 07/26/24 07/26/24 Range/Units 20:51 20:51 20:51 WBC 7.69 (4.50-10.00) 10*3/uL RBC 4.79 (4.40-5.60) 10*6/uL Hgb 15.5 (13.0-17.0) g/dL Hct 43.6 (39.6-50.0) % MCV 91.0 (80.0-97.0) fL MCH 32.4 H (27.0-32.0) pg MCHC 35.6 (32.0-37.0) g/dL Plt Count 307 (140-440) 10*3/uL MPV 8.6 L (9.5-12.2) fL Immature Gran % (Auto) 0.3 % Neutrophils % 79.4 % Lymphocytes % 13.7 % Monocytes % 6.4 % Eosinophils % 0.1 % Basophils % 0.1 % Immature Gran # 0.02 (0.00-0.04) 10*3/uL Neutrophils # 6.11 (1.80-7.70) 10*3/uL Lymphocytes # 1.05 (0.90-5.00) 10*3/uL Monocytes # 0.49 (0.20-1.00) 10*3/uL Eosinophils # 0.01 L (0.04-0.35) 10*3/uL Basophils # 0.01 (0.00-0.10) 10*3/uL Sodium 138 (137-145) mmol/L Potassium 3.8 (3.5-5.1) mmol/L Chloride 105 (98-107) mmol/L Carbon Dioxide 24 (22-30) mmol/L Anion Gap 9 mmol/L BUN 14 (9-20) mg/dL Creatinine 0.79 (0.66-1.25) mg/dL Est GFR (CKD-EPI)AfAm >90 (>60 ml/min/1.73 sqM) Est GFR (CKD-EPI)NonAf >90 (>60 ml/min/1.73 sqM) Glucose 119 H (74-99) mg/dL Plasma Lactic Acid Cristian 1.2 (0.7-2.0) mmol/L Calcium 9.8 (8.4-10.2) mg/dL Total Bilirubin 1.7 H (0.2-1.3) mg/dL AST 20 (17-59) U/L ALT 12 (4-49) U/L Alkaline Phosphatase 84 (38-126) U/L Total Protein 7.3 (6.3-8.2) g/dL Albumin 4.6 (3.5-5.0) g/dL Disposition Clinical Impression: Dental abscess Disposition: HOME SELF-CARE Condition: Good Instructions (If sedation given, give patient instructions): Dental Abscess (ED) Additional Instructions: Please follow up with the [facility]. [facility] [place] [address]. Phone number for new patients or [phone] for existing patients. Prescriptions: Amoxic-Pot Clav 875-125Mg [Augmentin 875-125] 1 tab PO Q12HR 7 Days #14 tab Is patient prescribed a controlled substance at d/c from ED?: No Referrals: None,Stated [Primary Care Provider] - 1-2 days Forms: Area PCPs Time of Disposition: 21:50
[2024-07-26 21:51] VITALS: BP 132/86; PULSE 75; TEMP 98.6
[2024-07-26] MEDS: AMOXIC-POT CLAV 875-125MG 1 EACH TAB PO STA (21:54)
== END 2024-07-26 22:01 | disposition home or self-care (01) ==
LOC: EC 19:45
DX: K04.7 Periapical abscess without sinus (principal); K02.9 Dental caries, unspecified; Z88.8 Allergy status to other drugs, medicaments and biological substances
CPT/HCPCS: 36415; 80053; 83605; 85025; 70487; 99284; 96374; J1885; Q9967